=== PATIENT | female | born 1990 | race Caucasian/White ===

== ENCOUNTER → 2018-04-28 | Outpatient (CLI) | payer BC ==
[2016-09-04 14:36] VITALS: BMI 23.0
[~2018-04-28] MED LIST: ACET-1718 PO; AMOX-559 PO; CEPH500C24 PO; IBUP800T37 PO; ONDA4TAB PO; OXYC-865 PO; PREN-127 PO; VITA1CAP46 PO
--- NOTE | 2018-04-28 14:13 | RADIOLOGY IMAGING REPORT ---
FACILITY: PATIENT NAME: Tabatha Flores : 1990 MR: [id number] V: [id number] EXAM DATE: ORDERING PHYSICIAN: SARI VARGAS TECHNOLOGIST: Location: [facility] - [place] Patient: Tabatha Flores : 1990 Visit/Account:[id number] Date of Sevice: 04/28/2018 OB Ultrasound > 14 weeks with anatomic evaluation. 3-D imaging was performed by the technologis t according to protocols developed by the radiologists and the facility radiology staff. Representat hal images are stored on PACS. HISTORY: Anatomical ultrasound COMPARISON STUDIES: None available FINDINGS: Intrauterine gestations: one presentation: Breech heart rate: 155 bpm Amniotic fluid index: 17.2 cm Largest amniotic fluid pocket 5.1 cm Placenta: Posterior without previa Uterus: gravid, otherwise normal Maternal adnexa: Unremarkable Cervix: long and closed Gestational Parameters: BPD: 4.3 cm 19 weeks, 2 days HC: 16.9 cm 19 weeks, 4 days AC: 13.7 cm 19 weeks, 2 days FL: 2.9 cm 19 weeks, 1 day Average ultrasound age (AUA): 19 weeks, 3 days ALLEN: 09/19/2018 Estimated weight (EFW): 278 gm Anatomic Survey: Intracranial structures, 4-chamber heart, stomach, kidneys, urinary bladder, spine, 3-vessel cord and cord insertion are unremarkable. Two upper and two lower extremities visualized. IMPRESSION: 1. Single live intrauterine gestation; estimated ultrasound age 19 weeks, 3 days. 2. Unremarkable anatomic survey Report Dictated By: Meliton Clemente DO at 04/28/2018 2:05 PM Report E-Signed By: Meliton Clemente DO at 04/28/2018 2:10 PM WSN:[id number]
== END ==
LOC: RAD 08:46
PROVIDERS: ATTEND Student in an Organized Health Care Education/Training Program
DX: Z02.9 Encounter for administrative examinations, unspecified (principal)
CPT/HCPCS: 76811

== ENCOUNTER → 2018-05-07 | Outpatient (CLI) | payer BC ==
[2016-09-04 14:36] VITALS: BMI 23.0
== END ==
LOC: LAB 15:33
PROVIDERS: ATTEND Obstetrics & Gynecology
DX: R00.2 Palpitations (principal)
CPT/HCPCS: 36415; 84443

== ENCOUNTER → 2018-07-03 | Outpatient (CLI) | payer BC ==
[2016-09-04 14:36] VITALS: BMI 23.0
[~2018-07-03] MED LIST changes: +DIPH0.5D12 IM
[2018-07-03 09:57] LABS: PLATELET COUNT, AUTOMATED 157 K/uL (150-450)
== END ==
LOC: LAB 08:03
PROVIDERS: ATTEND Student in an Organized Health Care Education/Training Program
DX: Z34.90 Encounter for supervision of normal pregnancy, unspecified, unspecified trimester (principal)
CPT/HCPCS: 36415; 82950; 85025

== ENCOUNTER → 2018-08-26 | Outpatient (CLI) | payer BC ==
[2016-09-04 14:36] VITALS: BMI 23.0
[~2018-08-26] MED LIST changes: +FLU60SYR36 IM
== END ==
LOC: LAB 11:25
PROVIDERS: ATTEND Student in an Organized Health Care Education/Training Program
DX: Z34.93 Encounter for supervision of normal pregnancy, unspecified, third trimester (principal)
CPT/HCPCS: 87081

== ENCOUNTER → 2018-09-14 | Outpatient (CLI) | payer BC ==
[~2018-09-14] VITALS: Ht 137.2 cm; Wt 62.1 kg
[~2018-09-14] MED LIST changes: +FAMOTIDINE(*) 20MG/50ML PREMIX 50 ML IVPB PRN; +FLUSH 10 ML SYR IVP PRN; +LIDOCAINE 1% LOCAL 300 MG/30ML INJ PRN; +LIDOCAINE/SOD BICARB 8.4% SYR SC PRN; +LR(*) 1000 ML BAG 1,000 ML IV SCH; +METOCLOPRAMIDE 10 MG/2 ML SDV IVP PRN; +OXYTOCIN 30 UNIT/D5LR 500 ML 500 ML IV PRN; +fentaNYL CITR 100 MCG/2 ML AMP IVP PRN
[2018-09-14 14:55] LABS: PLATELET COUNT, AUTOMATED 144 K/uL (150-450)
[2018-09-14 15:00] VITALS: BP 135/92; Ht 137.2 cm; Wt 62.1 kg
== END ==
LOC: UNDOADMOB 14:12 → OB 14:12 → L&D 14:13 → UNDODISOB 21:45 → EDSTATUS 09-18 15:36
PROVIDERS: ATTEND Obstetrics & Gynecology
DX: O62.0 Primary inadequate contractions (principal); Z3A.39 39 weeks gestation of pregnancy
CPT/HCPCS: 59025; 85025; 86703; 86850; 86900; 86901; G0378; G0379

== ENCOUNTER 2018-09-19 18:57 | Inpatient (IN) | payer BC ==
[~2018-09-19] VITALS: Ht 162.6 cm; Wt 60.8 kg
[~2018-09-19 18:57] MED LIST changes: -FAMOTIDINE(*) 20MG/50ML PREMIX 50 ML IVPB PRN; -FLUSH 10 ML SYR IVP PRN; -LIDOCAINE 1% LOCAL 300 MG/30ML INJ PRN; -LIDOCAINE/SOD BICARB 8.4% SYR SC PRN; -LR(*) 1000 ML BAG 1,000 ML IV SCH; -METOCLOPRAMIDE 10 MG/2 ML SDV IVP PRN; -OXYTOCIN 30 UNIT/D5LR 500 ML 500 ML IV PRN; -fentaNYL CITR 100 MCG/2 ML AMP IVP PRN
[2018-09-19] MEDS ORDERED: LIDOCAINE 1% LOCAL 300 MG/30ML INJ PRN (19:00)
[2018-09-19] MEDS ORDERED: FLUSH 10 ML SYR IVP PRN (19:00)
[2018-09-19] MEDS ORDERED: LIDOCAINE/SOD BICARB 8.4% SYR SC PRN (19:00)
[2018-09-19] MEDS ORDERED: fentaNYL CITR 100 MCG/2 ML AMP IVP PRN (19:00)
[2018-09-19] MEDS ORDERED: OXYTOCIN 30 UNIT/D5LR 500 ML 500 ML IV PRN (19:00)
[2018-09-19] MEDS ORDERED: FAMOTIDINE(*) 20MG/50ML PREMIX 50 ML IVPB PRN (19:00)
[2018-09-19] MEDS ORDERED: METOCLOPRAMIDE 10 MG/2 ML SDV IVP PRN (19:00)
[2018-09-19] MEDS ORDERED: LR(*) 1000 ML BAG 1,000 ML IV SCH (19:00)
[2018-09-19 19:57] LABS: PLATELET COUNT, AUTOMATED 144 K/uL (150-450)
[2018-09-19 20:35] VITALS: BP 133/88; Ht 162.6 cm; Wt 60.8 kg
--- NOTE | 2018-09-19 21:09 | History & Physical ---
History of Present Illness Age of Patient: 27 : 5 Para or TPAL: 2 EDC per U/S: Sep 19, 2018 Estimated Gestational Age: 40 Chief Complaint Reports increased pain with contractions at home every 2-5 min.+ FM. Denies LOF, VB or preeclampsia symptoms History Patient's Blood Type: A Positive Rubella Status: Immune Group B Strep Screen: Negative Obstetrical History: Hx of IUGR in last and was induced, hx of 2 miscarriages Past Medical History: non contributory Allergies: Coded Allergies: gluten (Verified Allergy, Mild, 10/07/16) Social History: No current T/E/D but smokes outside of . Family History: FH: anemia MOTHER FH: lung cancer Paternal Grandfather Maternal Grandfather FH: ovarian cancer Paternal Grandmother Med Rec Home Meds Reported Medications Vitamin B Complex (VITAMIN B COMPLEX) 1 Each Capsule, 1 EACH PO PRN, CAPSULE 03/04/18 Vits W-Ca,Fe,Fa(<1MG) ( VITAMINS) 1 Each Tablet, 1 EACH PO DAILY, TAB 03/04/18 Review of Systems All Systems Reviewed/Normal: Yes, Except as Noted Other Mild contraction pain Exam General Exam Vital Signs Vital Signs Date Time Temp Pulse Resp B/P (MAP) Pulse Ox O2 Delivery O2 Flow Rate FiO2 09/19/18 20:35 97.6 73 18 133/88 (103) 95 Room Air General Apperance: Alert/Awake/No Acute Distress Neuro: No Gross deficits Eyes: Normal Extraocular Movement & Vison ENT: Normal Cardiovascular: Regular Rate and Rhythm Respiratory: No Respiratory Distress Abdomen: Gravid - Non-Tender : Normal Musculoskeletal: No Weakness/Pain Integumentary: Skin Intact without Lesions or Rash Psychological: Alert & Oriented X3, Appropriate Mood & Affect Cervical Dialation: 4 Cervical Effacement (%): 80 Cervical Consistency: Soft Cervical Position: Mid Station: 0 Presentation: Vertex Uterine Contractions(Q min): 3 Uterine Contraction Strength: Moderate UC Resting Tone: Soft Fetus Feeling Movement?: Yes Estimated Weight(grams): 3000 Heart Tones: 120 Heart Tone Variabilty: Moderate FHT Accelerations: 15X15 FHT Decelerations: None FHT Category: I Medical Decision Making Data Points Result Diagram: 09/19/181944 VTE Prophylasis: Adult Deep Vein Thrombosis/Pulmonary: No Pharmacological Contraindicati: Pt at Low Risk for VTE Mechanical Contraindications: Pt at Low Risk for VTE Assessment and Plan Hospital Day: 1 RUBBER LINER Assessment: Stable RUBBER LINER Plan: Routine Labor Care Problems: (1) Supervision of normal Status: Acute Assessment & Plan: Assessment/Plan: AB is a 27y.o. at 40w0d wks with an Estimated Date of Delivery: 09/19/18 dated by L, 7 1. Labor state: Early labor 2. well-being: Category 1 FHT: Intermittent monitoring for low risk 3. Maternal well-being: VSS, mildly hypertensive w/o symptoms, intact membranes 4. PNL: GBS neg Type/Rh A+, rubella immune 5. Pain Management: plans for unmedicated labor and 6. Feed: Breast 7. PPBCM: tubal? 8. c/b: Hx: IUGR in previous 9.Anticipate , re-evaluate in 2-3 hours or prn (2) Normal labor Status: Acute Assessment & Plan: Assessment/Plan: AB is a 27y.o. at 40w0d wks with an Estimated Date of Delivery: 09/19/18 dated by L, 7 1. Labor state: Early labor 2. well-being: Category 1 FHT: Intermittent monitoring for low risk 3. Maternal well-being: VSS, mildly hypertensive w/o symptoms, intact membranes 4. PNL: GBS neg Type/Rh A+, rubella immune 5. Pain Management: plans for unmedicated labor and 6. Feed: Breast 7. PPBCM: tubal? 8. c/b: Hx: IUGR in previous 9.Anticipate , re-evaluate in 2-3 hours or prn Reviewed AROM, pitocin augmentation R/B/A. Pt desires to meditate and use essential oils to relax and then plans to opt for AROM to start labor progression. Problem Qualifiers (1) Supervision of normal : Trimester: third trimester ALONDRA BROWN CNM Sep 19, 2018 21:08
[2018-09-19] MEDS ORDERED: FAMOTIDINE 20 MG TAB PO ONE (22:20)
--- NOTE | 2018-09-19 23:03 | Labor Progress Note ---
Labor Subjective Progress Notes Subjective Pt desires AROM to help with labor progression. Denies VB, LOF. C/o of mild headache, but does not want anything for pain. at the bedside and very supportive. Tolerated AROM well Feeling Movement?: Yes Vaginal Discharge/Fluid: Green Tinged Fluid, Moderate Amount Labor Pain: Mild Eyes: No Visual Disturbances Labor Objective Vital Signs Vital Signs Date Time Temp Pulse Resp B/P (MAP) Pulse Ox O2 Delivery O2 Flow Rate FiO2 09/19/18 20:35 97.6 73 18 133/88 (103) 95 Room Air Vaginal Discharge/Fluid?: Green Tinged Fluid, Moderate Amount Cervical Dialation: 5 Cervical Effacement (%): 80 Cervical Consistency: Soft Cervical Position: Mid Station: 0 Presentation: Vertex Uterine Contractions(Q min): 4 Uterine Contraction Strength: Mild UC Resting Tone: Soft Fetus Estimated Weight(grams): 3000 Heart Tones: 125 Heart Tone Variabilty: Moderate FHT Accelerations: 15X15 FHT Decelerations: Late FHT Category: II General Exam General Appearance: Alert/Awake/No Acute Distress ENT: Normal Psychological: Alert & Oriented X3, Appropriate Mood & Affect (Pt is slightly anxious but trying to do meditaion and oils to help), Other Other Result Diagram: 09/19/181944 Assessment and Plan Hospital Day: 1 PHOTOGRAPHER NEWS Assessment: Stable PHOTOGRAPHER NEWS Plan: Routine Labor/Induct Care Problems: (1) Supervision of normal Status: Acute (2) Normal labor Status: Acute Assessment & Plan: Assessment/Plan: AB is a 27y.o. at 40w0d wks with an Estimated Date of Delivery: 09/19/18 dated by Nicole Terrazas 1. Labor state: Active labor 2. well-being: Category II FHT for one late deceleration: Continuous monitoring for thin meconium. PEDS at 3. Maternal well-being: VSS, normotensive, AROM @ 2233 for moderate amt of thin mec. Encouraged upright positions. 4. PNL: GBS neg Type/Rh A+, rubella immune 5. Pain Management: plans for unmedicated labor and ; will try hydrotherapy when contractions become more painful 6. Feed: Breast 7. PPBCM: will get a vasectomy 8. c/b: Hx: IUGR in previous 9.Anticipate , re-evaluate in 2-3 hours or prn Problem Qualifiers (1) Supervision of normal : Trimester: third trimester ALONDRA BROWN CNM Sep 19, 2018 23:03
[2018-09-20] MEDS: IBUPROFEN 800 MG TAB PO SCH ×3 (01:00→16:55)
[2018-09-20] MEDS ORDERED: GLYCERIN/WITCH HAZEL LEAF 1 PK TOP PRN (01:10)
[2018-09-20] MEDS ORDERED: LANOLIN OINT 7 GM TUBE TP PRN (01:10)
[2018-09-20] MEDS ORDERED: BENZOCAINE 20% 60 ML BTL TP PRN (01:10)
[2018-09-20] MEDS ORDERED: ACETAMINOPHEN 325 MG TAB PO PRN (01:10)
[2018-09-20] MEDS ORDERED: MAGNESIUM HYDROXIDE* 30ML UDCP PO PRN (01:10)
[2018-09-20] MEDS ORDERED: HYDROCORTISONE 2.5% CR 30GM TB PR PRN (01:10)
[2018-09-20] MEDS: APAP/HYDROCODONE 325/5 TAB PO PRN ×2 (01:33→07:49)
--- NOTE | 2018-09-20 01:46 | OB Delivery Note ---
Delivery Note Vaginal Delivery Type: Spont. Vaginal Delivery Delivery Date: Sep 20, 2018 Delivery Time: 00:50 Estimated Gestational Age(wks): 40 1/7 Delivery Anesthesia: IV Opiate Infant Sex: Male [place] Apgars: 1 Minute, 5 Minute Estimated Blood Loss: 100 Delivery Complications: Nuchal Cord Notes: The patient was noted to be complete at 0045. Spontaneously starting pushing with excellent maternal effort. vertex delivery of a live male at 0050 without anesthesia, weighing 3352gms with APGARS 7/9. The head delivered spontaneously in the OA and restituted to VIOLETA, nuchal cord X2 with left compound hand with light meconium was present before delivery with AROM. The anterior shoulder was delivered atraumatically and the posterior shoulder followed. Body delivered easily. Face was wiped with nose and bulb suction and then placed on the maternal abdomen. Cord was clamped X 2 by CNM after pulsations ceased and cut by patient's spouse. The was dried and stimulated and noted to have a spontaneous cry and spontaneous movement of all 4 extremities. Placenta delivered spontaneously at 0059 with maternal push, intact with a 3 vessel cord. 30 units of Pitocin was placed in 500cc IV to firm the uterus and started after placenta delivery. Perineum and vaginal vault was inspected and found to be intact. No repair was necessary. EBL was 100, fundus firm with minimal bleeding. PEDS present for delivery for meconium. Recovering in labor and delivery well with . was initiated. Matilda Adkins CNM was present throughout entire delivery as well as Elena Hermosillo CNM. Mother and baby stable when I left the room. Fingernail Sculptor in Attendence: Yes ALONDRA ADKINS CNM Sep 20, 2018 01:39
[2018-09-20 02:35] VITALS: BP 132/67
[2018-09-20 07:45] VITALS: BP 114/80
--- NOTE | 2018-09-20 08:07 | OB/GYN Progress Note ---
OB Subjective Progress Notes Subjective Doing well. Pain controlled with oral medications. Tolerating regular diet. Ambulating. Voiding. Normal lochia. No preeclampsia symptoms. OB Objective Physical Exam Vital Signs Date Time Temp Pulse Resp B/P (MAP) Pulse Ox O2 Delivery O2 Flow Rate FiO2 09/20/18 02:35 97.6 71 18 132/67 (88) 96 Room Air Intake and Output 09/20/18 06:58 Intake Total 1980 ml Balance 1980 ml Intake Oral 480 ml IV Total 1500 ml # Voids 1 General Appearance: Alert/Awake/No Acute Distress Neurological: No Gross deficits Eyes: Normal Extraocular Movement & Vison ENT: Normal Respiratory: No Respiratory Distress Abdomen: Soft, Non-Tender, Non-Distended, Fundus Firm Musculoskeletal: No Weakness/Pain Extremities: No Cyanosis,Clubbing or Edema Integumentary: Skin Intact without Lesions or Rash Psychological: Alert & Oriented X3, Appropriate Mood & Affect (Pt is slightly anxious but trying to do meditaion and oils to help), Other Result Diagram: 09/19/181944 Assessment and Plan Problems: (1) care following vaginal delivery Assessment & Plan: PPD#0 s/p . Routine orders. TAZ NICKERSON MD Sep 20, 2018 08:07
[2018-09-20] MEDS: DOCUSATE CALCIUM 240 MG CAP PO SCH ×2 (09:00→23:30)
[2018-09-20] MEDS ORDERED: IBUPROFEN 800 MG TAB PO SCH (09:00)
[2018-09-20 11:45] VITALS: BP 117/81
[2018-09-20 16:00] VITALS: BP 122/79
[2018-09-20 23:40] VITALS: BP 110/74
[2018-09-21] MEDS: IBUPROFEN 800 MG TAB PO SCH ×2 (01:02→08:46)
--- NOTE | 2018-09-21 07:47 | OB/GYN Progress Note ---
OB Subjective Progress Notes Subjective Doing well. Pain controlled with oral medications. Tolerating regular diet. Ambulating. Voiding. Normal lochia. No preeclampsia symptoms. OB Objective Physical Exam Vital Signs Date Time Temp Pulse Resp B/P (MAP) Pulse Ox O2 Delivery O2 Flow Rate FiO2 09/20/18 23:40 98.3 67 16 110/74 (86) 09/20/18 02:35 96 Room Air Intake and Output 09/21/18 06:58 Intake Total 1530 ml Balance 1530 ml Intake Oral 1530 ml # Voids 1 General Appearance: Alert/Awake/No Acute Distress Neurological: No Gross deficits Eyes: Normal Extraocular Movement & Vison ENT: Normal Respiratory: No Respiratory Distress Abdomen: Soft, Non-Tender, Non-Distended, Fundus Firm Musculoskeletal: No Weakness/Pain Extremities: No Cyanosis,Clubbing or Edema Integumentary: Skin Intact without Lesions or Rash Psychological: Alert & Oriented X3, Appropriate Mood & Affect (Pt is slightly anxious but trying to do meditaion and oils to help), Other Result Diagram: 09/19/181944 Assessment and Plan Problems: (1) care following vaginal delivery Assessment & Plan: PPD#1. Meeting milestones. Desires discharge to home today. Discussed routine expectations. Questions answered. Follow up in clinic in 2-3wks for check. TAZ NICKERSON MD Sep 21, 2018 07:47
[2018-09-21] MEDS ORDERED: IBUP800T37 PO (07:48)
[2018-09-21 07:49] VITALS: BP 120/79
--- NOTE | 2018-09-21 07:50 | OB/GYN Discharge Summary ---
Discharge Summary Reason for Hosp/Final Diag: (1) care following vaginal delivery Hospital Course & Plan: PPD#1. Meeting milestones. Desires discharge to home today. Discussed routine expectations. Questions answered. Follow up in clinic in 2-3wks for check. Lates Vital Signs Vital Signs Date Time Temp Pulse Resp B/P (MAP) Pulse Ox O2 Delivery O2 Flow Rate FiO2 09/20/18 23:40 98.3 67 16 110/74 (86) 09/20/18 02:35 96 Room Air Weight (Pounds): 134 Result Diagram: 09/19/181944 Condition: Improved Discharge: Home, Self Intermediate Meds Reported Medications Vitamin B Complex (VITAMIN B COMPLEX) 1 Each Capsule, 1 EACH PO PRN, CAPSULE 03/04/18 Vits W-Ca,Fe,Fa(<1MG) ( VITAMINS) 1 Each Tablet, 1 EACH PO DAILY, TAB 03/04/18 Follow up Referrals: [facility] with ALONDRA BROWN CNM Discharge Diet: As Tolerates Discharge Activity: Pelvic Rest TAZ NICKERSON MD Sep 21, 2018 07:50
[2018-09-21] MEDS: DOCUSATE CALCIUM 240 MG CAP PO SCH (08:46)
[2018-09-21 11:49] VITALS: BP 121/59
== END 2018-09-21 16:30 | disposition home or self-care (01) | DRG 807 ==
LOC: OB 18:57
PROVIDERS: ADMIT Obstetrics & Gynecology; ATTEND Obstetrics & Gynecology
PROC: 10E0XZZ Delivery of Products of Conception, External Approach (ICD-10-PCS; principal; 2018-09-19)
PROC: 10907ZC Drainage of Amniotic Fluid, Therapeutic from Products of Conception, Via Natural or Artificial Opening (ICD-10-PCS; 2018-09-19)
DX: O77.0 Labor and delivery complicated by meconium in amniotic fluid (principal); Z37.0 Single live birth; O76 Abnormality in fetal heart rate and rhythm complicating labor and delivery; O69.1XX0 Labor and delivery complicated by cord around neck, with compression, not applicable or unspecified; Z3A.40 40 weeks gestation of pregnancy
CPT/HCPCS: 85025; 86850; 86900; 86901; J2590; J3010; J7120